=== PATIENT | female | born 1980 | race Caucasian/White ===

== ENCOUNTER 2025-04-16 18:46 | Emergency (ER) | payer OTHER ==
[~2025-04-16] VITALS: Ht 177.8 cm; Wt 77.1 kg
[2025-04-16] MEDS ORDERED: DiphenhydrAMINE HCl 50 MG/ML 1ML Vial IV ONE (19:35)
[2025-04-16] MEDS ORDERED: Prochlorperazine Edisylate 10 mg Vial IV ONE (19:35)
[2025-04-16] MEDS ORDERED: Ondansetron HCl 2 MG / ML 2ML Vial IV ONE (19:35)
[2025-04-16] MEDS ORDERED: Ketorolac Tromethamine 15mg Vial IV ONE (19:35)
== END 2025-04-16 21:53 | disposition home or self-care (01) ==
LOC: ER 18:46
DX: R51.9 Headache, unspecified (principal)
CPT/HCPCS: 96374; 96375; 99283-25; J0780; J1200; J1885; J2405